=== PATIENT | female | born 1985 | race Caucasian/White ===

== ENCOUNTER → 2020-08-19 | Emergency (ER) | payer OTHER ==
[~2020-08-19] VITALS: Ht 121.9 cm; Wt 40.8 kg
[~2020-08-19] MED LIST: DOLOGESIC CAPLE1 TAB PO; TUSICOF LIQUID120 ML PO
== END | disposition left against medical advice (07) ==
LOC: ER 03:30
DX: R10.31 Right lower quadrant pain (principal); N39.0 Urinary tract infection, site not specified

== ENCOUNTER 2024-04-16 15:30 | Emergency (ER) | payer OTHER ==
[~2024-04-16] VITALS: Ht 149.9 cm; Wt 42.2 kg
[2024-04-16] MEDS ORDERED: FAMOTIDINE/PF 20 MG in 0.9 % SODIUM CHLORIDE 8 ML IV PUSH STA (17:01)
[2024-04-16] MEDS ORDERED: SUCRALFATE 1 G TABLET PO ONE (17:15)
[2024-04-16] MEDS ORDERED: FAMOTIDINE/PF 20 MG/2 ML VIAL ONE (18:34)
[2024-04-16 18:47] LABS: HEMATOCRIT 39.7 % (36.0-45.00); HEMOGLOBIN 13.3 g/dL (12.0-15.00); MEAN CELL VOLUME 92.3 fL (80.00-100.00); MEAN CORPUSCULAR HEMOGLOBIN 30.9 pg (27.00-32.0); MEAN CORPUSCULAR HGB CONC 33.5 g/dl (32.0-36.0); PLATELET COUNT 270 K/uL (150-450); RED CELL DISTRIBUTION WIDTH 14.6 % (11.5-14.5)
[2024-04-16 19:21] LABS: ALBUMIN 3.8 gm/dL (3.4-5.0); BILIRUBIN TOTAL 0.74 mg/dL (0.3-1.2); CALCIUM 8.9 mg/dL (8.5-10.1); CREATININE SERUM 0.64 mg/dL (0.55-1.02); POTASSIUM 4.52 mEq/L (3.5-5.1); TOTAL PROTEIN 7.8 gm/dL (6.4-8.2)
[2024-04-16 19:22] LABS: BILIRUBIN,CONJUGATED 0.13 mg/dL (0.0-0.2); BILIRUBIN,UNCONJUGATED 0.61 mg/dL (0.0-0.6)
[2024-04-16] MEDS ORDERED: CARAFATE1 GM PO (19:54)
[2024-04-16] MEDS ORDERED: PEPCID AC20 MG PO (19:54)
== END 2024-04-16 21:09 | disposition home or self-care (01) ==
LOC: ER 15:30
PROVIDERS: General Practice
DX: K29.70 Gastritis, unspecified, without bleeding (principal); N20.0 Calculus of kidney